=== PATIENT | female | born 1970 | race Caucasian/White ===

== ENCOUNTER 2016-09-26 06:59 | Emergency (ER) | payer BC ==
[~2016-09-26] VITALS: Ht 157.5 cm; Wt 69.4 kg
[~2016-09-26 06:59] MED LIST: CYCL10TA2 PO; HYDR-971 PO; IBUP200T43 PO
[2016-09-26 08:10] VITALS: BP 156/82
--- NOTE | 2016-09-26 08:20 | PHYS DOC ---
Past Medical History Past Medical History: Other Additional Past Medical Histor: L nephrectomy Past Surgical History: Tubal ligation, Other Additional Past Surgical Histo: L nephrectomy, L ACL/MCL Alcohol Use: None Drug Use: None Adult General Chief Complaint Chief Complaint: COUGH HPI HPI Patient is a 45 year old female presents to the emergency department with a history of cough and congestion for the last day. Patient states she has been taking Nyquil over the counter without relief. Patient also states she used her sons albuterol nebulizer treatment yesterday with some relief. Patient state she has a productive cough, green in color. She has been exposed to bronchitis. She denies fever, chills, nausea or vomiting. Review of Systems Review of Systems Constitutional: Denies fever or chills [] Eyes: Denies change in visual acuity, redness, or eye pain [] HENT: nasal congestion denies sore throat [] Respiratory: cough denies shortness of breath [] Cardiovascular: No additional information not addressed in HPI [] GI: Denies abdominal pain, nausea, vomiting, bloody stools or diarrhea [] : Denies dysuria or hematuria [] Musculoskeletal: Denies back pain or joint pain [] Integument: Denies rash or skin lesions [] Neurologic: Denies headache, focal weakness or sensory changes [] Current Medications Current Medications Current Medications Medications (Trade) Dose Ordered Sig/Che Start Time Stop Time Status Last Admin Dose Admin Albuterol Sulfate (Ventolin Neb Soln) 2.5 mg 1X ONCE 09/26/16 08:30 09/26/16 08:31 DC 09/26/16 09:01 2.5 MG Prednisone (Prednisone) 40 mg 1X ONCE 09/26/16 08:30 09/26/16 08:31 DC 09/26/16 08:28 40 MG Allergies Allergies Allergies Coded Allergies Type Severity Reaction Last Updated Verified Penicillins Allergy Severe hives 08/25/14 Yes levofloxacin Allergy Severe anaphylaxis 08/25/14 Yes Physical Exam Physical Exam Constitutional: Well developed, well nourished, no acute distress, non-toxic appearance. [] HENT: Normocephalic, atraumatic, bilateral external ears normal, oropharynx moist, no oral exudates, nose normal. Bilateral TM normal, throat without erythema, no exudate noted. Patient was noted to have frontal and maxillary sinus tenderness Eyes: PERRLA, EOMI, conjunctiva normal, no discharge. [] Neck: Normal range of motion, no tenderness, supple, no stridor. [] Cardiovascular:Heart rate regular rhythm, no murmur [] Lungs & Thorax: Bilateral breath sounds clear to auscultation [] Skin: Warm, dry, no erythema, no rash. [] Back: No tenderness Extremities: No tenderness, no cyanosis, no clubbing, ROM intact, no edema. [] Neurologic: Alert and oriented X 3, normal motor function, normal sensory function, no focal deficits noted. [] Psychologic: Affect normal, judgement normal, mood normal. [] Current Patient Data Vital Signs Vital Signs Date Time Temp Pulse Resp B/P Pulse Ox O2 Delivery O2 Flow Rate FiO2 09/26/16 09:02 98 Room Air 09/26/16 08:10 98.3 86 19 98.3 EKG EKG [] Radiology/Procedures Radiology/Procedures [] Course & Med Decision Making Course & Med Decision Making Pertinent Labs and Imaging studies reviewed. (See chart for details) Patient was provided with respiratory treatment here in the emergency department. She states that she is breathing much better. She was also provided with prednisone. She will be discharged home with albuterol nebulizer treatment , prednisone and zithromax. Recommended plenty of fluids such as water, propel or gatorade. Patient was provided with signs and symptoms to return to the emergency department. Patient agrees with discharge instructions, treatment regimen and followup recommendations. Recommended patient to followup with primary care provider in 5-7 days. [] Dragon Disclaimer Dragon Disclaimer This electronic medical record was generated, in whole or in part, using a voice recognition dictation system. Departure Departure Impression: Primary Impression: Bronchitis Disposition: 01 HOME, SELF-CARE Condition: STABLE Referrals: NO PCP (PCP) Patient Instructions: Bronchitis, [id number] Additional Instructions: Activity as tolerated Mucinex DM as prescribed by manufacture Medication as prescribed Drink plenty of fluids such as water, gatorade or propel Followup with your primary care provider in 5-7 days Return to emergency department as needed for signs and symptoms that become worse. Scripts Albuterol Sulfate (Albuterol Sulfate Neb Soln)0.63 Mg/3 Ml Vial.neb0.63 Mg NEB PRN Q4HRS PRN SHORTNESS OF BREATH #1 EACH Ref 0 Prov:JOLENE FRANKLIN NP 09/26/16 Azithromycin (Zithromax)250 Mg [id number] Mg PO DAILY ANTI-BIOTIC #6 TAB Ref 0 Take 2 tablets today then 1 tablet daily until completed Prov:JOLENE FRANKLIN NP 09/26/16 JOLENE FRANKLIN NP Sep 26, 2016 08:20
[2016-09-26] MEDS ORDERED: PREDNISONE 20 MG TABLET PO ONE (08:30)
[2016-09-26] MEDS ORDERED: ALBUTEROL SULFATE 2.5 MG/3 ML NEBU. NEB ONE (08:30)
[2016-09-26] MEDS ORDERED: ALBU0.63 NEB (08:37)
[2016-09-26] MEDS ORDERED: AZIT250T PO (08:37)
[2016-09-26] MEDS ORDERED: PRED20TA PO (09:27)
== END 2016-09-26 09:43 | disposition home or self-care (01) ==
LOC: ER 06:59
DX: J40 Bronchitis, not specified as acute or chronic (principal); Z88.0 Allergy status to penicillin; Z88.1 Allergy status to other antibiotic agents
CPT/HCPCS: 94250; 94640; 99283; J7512

== ENCOUNTER 2016-12-10 07:54 | Emergency (ER) | payer BC ==
[~2016-12-10] VITALS: Ht 160 cm; Wt 72.6 kg
[~2016-12-10 07:54] MED LIST changes: +ALBU0.63 NEB; +AZIT250T PO; +PRED20TA PO
[2016-12-10 08:08] VITALS: BP 149/88
--- NOTE | 2016-12-10 08:16 | RAD ---
Chest, 2 views, 12/10/2016: History: Cough and cold Comparison is made to a study from 04/16/2016. The heart size and pulmonary vascularity are normal. No pulmonary infiltrates are seen. There is no evidence of pleural fluid. IMPRESSION: No acute cardiopulmonary abnormality is detected.
--- NOTE | 2016-12-10 08:20 | PHYS DOC ---
Past Medical History Past Medical History: No Pertinent History Additional Past Medical Histor: L nephrectomy Past Surgical History: Tubal ligation, Other Additional Past Surgical Histo: L nephrectomy, L ACL/MCL Alcohol Use: None Drug Use: None Adult General Chief Complaint Chief Complaint: COUGH HPI HPI Patient is a 46 year old female with history of bronchitis who presents today with a productive cough that began 3 days ago. Patient denies any fever. She states she has tried using her nebulizer with no relief. 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 Review of Systems Review of Systems Constitutional: Denies fever or chills [] Eyes: Denies change in visual acuity, redness, or eye pain [] HENT: Denies nasal congestion or sore throat [] Respiratory: cough Cardiovascular: No additional information not addressed in HPI [] GI: Denies abdominal pain, nausea, vomiting, bloody stools or diarrhea [] : Denies dysuria or hematuria [] Musculoskeletal: Denies back pain or joint pain [] Integument: Denies rash or skin lesions [] Neurologic: Denies headache, focal weakness or sensory changes [] Endocrine: Denies polyuria or polydipsia [] Current Medications Current Medications Current Medications Medications (Trade) Dose Ordered Sig/Che Start Time Stop Time Status Last Admin Dose Admin Albuterol/ Ipratropium (Duoneb) 3 ml 1X ONCE 12/10/16 08:30 12/10/16 08:31 DC 12/10/16 08:41 3 ML Prednisone (Prednisone) 60 mg 1X ONCE 12/10/16 08:30 12/10/16 08:31 DC 12/10/16 08:25 60 MG Allergies Allergies Allergies Coded Allergies Type Severity Reaction Last Updated Verified Penicillins Allergy Severe hives 08/25/14 Yes levofloxacin Allergy Severe anaphylaxis 08/25/14 Yes strawberry Allergy Intermediate hives 12/10/16 Yes Uncoded Allergies Type Severity Reaction Last Updated Verified catfish Allergy Intermediate rash 12/10/16 Physical Exam Physical Exam Constitutional: Well developed, well nourished, no acute distress, non-toxic appearance. [] HENT: Normocephalic, atraumatic, bilateral external ears normal, oropharynx moist, no oral exudates, nose normal. [] Eyes: PERRLA, EOMI, conjunctiva normal, no discharge. [] Neck: Normal range of motion, no tenderness, supple, no stridor. [] Cardiovascular:Heart rate regular rhythm, no murmur [] Lungs & Thorax: Slight wheezing to posterior lung bases. Abdomen: Bowel sounds normal, soft, no tenderness, no masses, no pulsatile masses. [] Skin: Warm, dry, no erythema, no rash. [] Back: No tenderness, no CVA tenderness. [] Extremities: No tenderness, no cyanosis, no clubbing, ROM intact, no edema. [] Neurologic: Alert and oriented X 3, normal motor function, normal sensory function, no focal deficits noted. [] Psychologic: Affect normal, judgement normal, mood normal. [] Current Patient Data Vital Signs Vital Signs Date Time Temp Pulse Resp B/P Pulse Ox O2 Delivery O2 Flow Rate FiO2 12/10/16 08:42 99 Room Air 12/10/16 08:08 98.5 87 20 98.5 EKG EKG [] Radiology/Procedures Radiology/Procedures [] Course & Med Decision Making Course & Med Decision Making Pertinent Labs and Imaging studies reviewed. (See chart for details) Patient is in the ED with symptoms consistent with bronchitis. She is given a DuoNeb treatment and prednisone in the ED. She was discharged with albuterol inhaler prednisone and Tessalon Perles. She was also given a prescription for Z- Herberth. She was encouraged follow-up with her own PCP in the next 7 days. She was provided return precautions and discharged in stable condition. Dragon Disclaimer Dragon Disclaimer This electronic medical record was generated, in whole or in part, using a voice recognition dictation system. Departure Departure Impression: Primary Impression: Acute bronchitis Disposition: 01 HOME, SELF-CARE Condition: STABLE Referrals: NO PCP (PCP) Follow-up with your doctor in one week Patient Instructions: Acute Bronchitis Additional Instructions: You were seen for acute bronchitis. Please take the prescribed medicines as ordered complete your antibiotics. Follow-up with your own doctor in the next 7 days. Scripts Azithromycin (Zithromax)250 Mg Tablet1 Pkg PO UD #1 PKG Prov:MUTUNGA,MARLYN [employer] 12/10/16 Benzonatate (Tessalon Perle)100 Mg Capsule1 Cap PO TID #30 CAP Prov:MUTUNGA,MARLYN [employer]INE[employer] 12/10/16 Albuterol Sulfate (Proair Respiclick)90 Mcg Aer.pow.ba1 Puff IH PRN Q6HRS PRN SHORTNESS OF BREATH #1 INHALER Ref 1 Prov:MARLYN HI APRN 12/10/16 Prednisone 50 Mg Tablet1 Tab PO DAILY #4 TAB Prov:MARLYN HI APRN 12/10/16 Problem Qualifiers Primary Impression: Acute bronchitis Bronchitis organism: unspecified organism Qualified Code: J20.9 - Acute bronchitis, unspecified MARLYN HI APRN Dec 10, 2016 08:20
[2016-12-10] MEDS ORDERED: predniSONE 20 MG TABLET PO ONE (08:30)
[2016-12-10] MEDS ORDERED: IPRATRPIUM/ALBUTEROL 0.5/2.5MG 3 ML NEBU. NEB ONE (08:30)
[2016-12-10] MEDS ORDERED: PRED50TA PO (09:14)
[2016-12-10] MEDS ORDERED: PROAIR RESPICL90 MCG IH (09:14)
[2016-12-10] MEDS ORDERED: AZIT250T PO (09:14)
[2016-12-10] MEDS ORDERED: BENZ100C PO (09:14)
== END 2016-12-10 09:34 | disposition home or self-care (01) ==
LOC: ER 07:54
DX: J20.9 Acute bronchitis, unspecified (principal); Z88.0 Allergy status to penicillin; Z88.1 Allergy status to other antibiotic agents; Z91.013 Allergy to seafood; Z91.018 Allergy to other foods
CPT/HCPCS: 71020; 94640; 99284; J7512; J7620

== ENCOUNTER 2017-03-29 16:43 | Emergency (ER) | payer SELFPAY ==
[~2017-03-29] VITALS: Ht 157.5 cm; Wt 70.8 kg
[~2017-03-29 16:43] MED LIST changes: +BENZ100C PO; +PRED50TA PO; +PROAIR RESPICL90 MCG IH
[2017-03-29 16:48] VITALS: BP 132/85
--- NOTE | 2017-03-29 17:24 | PHYS DOC ---
Past Medical History Past Medical History: Kidney Stone Past Surgical History: Tubal ligation, Other Additional Past Surgical Histo: L nephrectomy, L ACL/MCL Alcohol Use: None Drug Use: None Adult General Chief Complaint Chief Complaint: LACERATION/AVULSION HPI HPI Patient is a 46 year old female presents emergency partner stating that she was cutting cabbage with a serrated knife when she cut her left thumb. She is unsure when her last tetanus immunization occurred. Bleeding is currently controlled. Patient is right-hand dominant. Review of Systems Review of Systems Constitutional: Denies fever or chills [] Eyes: Denies change in visual acuity, redness, or eye pain [] HENT: Denies nasal congestion or sore throat [] Respiratory: Denies cough or shortness of breath [] Cardiovascular: No additional information not addressed in HPI [] GI: Denies abdominal pain, nausea, vomiting, bloody stools or diarrhea [] : Denies dysuria or hematuria [] Musculoskeletal: Denies back pain or joint pain [] Integument: Denies rash or skin lesions. Laceration left thumb Neurologic: Denies headache, focal weakness or sensory changes [] Endocrine: Denies polyuria or polydipsia [] Current Medications Current Medications Current Medications Medications (Trade) Dose Ordered Sig/Che Start Time Stop Time Status Last Admin Dose Admin Tetanus/ Diphtheria Toxoids (Tenivac Syringe) 0.5 ml ONCE ONCE 03/29/17 17:30 03/29/17 17:31 Allergies Allergies Allergies Coded Allergies Type Severity Reaction Last Updated Verified Penicillins Allergy Severe hives 08/25/14 Yes levofloxacin Allergy Severe anaphylaxis 08/25/14 Yes strawberry Allergy Intermediate hives 12/10/16 Yes Uncoded Allergies Type Severity Reaction Last Updated Verified catfish Allergy Intermediate rash 12/10/16 Physical Exam Physical Exam Constitutional: Well developed, well nourished, no acute distress, non-toxic appearance. [] HENT: Normocephalic, atraumatic, bilateral external ears normal, oropharynx moist, no oral exudates, nose normal. [] Eyes: PERRLA, EOMI, conjunctiva normal, no discharge. [] Neck: Normal range of motion, no tenderness, supple, no stridor. [] Cardiovascular:Heart rate regular rhythm Lungs & Thorax: No respiratory distress Skin: Warm, dry, no erythema, no rash. Approximately 1 cm laceration noted to the medial side of the left thumb. Bleeding is currently controlled. Back: No tenderness Extremities: No tenderness, no cyanosis, no clubbing, ROM intact, no edema. [] Neurologic: Alert and oriented X 3, normal motor function, normal sensory function, no focal deficits noted. [] Psychologic: Affect normal, judgement normal, mood normal. [] Current Patient Data Vital Signs Vital Signs Date Time Temp Pulse Resp B/P (MAP) Pulse Ox O2 Delivery O2 Flow Rate FiO2 03/29/17 16:48 98.6 82 16 98 Room Air 98.6 EKG EKG [] Radiology/Procedures Radiology/Procedures [] Course & Med Decision Making Course & Med Decision Making Pertinent Labs and Imaging studies reviewed. (See chart for details) Finger was soaked in soapy water for approximately 20 minutes. Site was glued closed with Dermabond. Patient was provided with discharge instructions, treatment regimens and follow-up recommendations. Signs symptoms to return back to emergency department been provided. Patient was updated with her tetanus immunization. All questions were answered at patient's bedside. She was provided with signs symptoms of infection. [] Dragon Disclaimer Dragon Disclaimer This electronic medical record was generated, in whole or in part, using a voice recognition dictation system. Departure Departure Impression: Primary Impression: Laceration Disposition: 01 HOME, SELF-CARE Condition: STABLE Referrals: NO PCP (PCP) Patient Instructions: Laceration Care, Adult, [id number], Stitches, Fracisco or Skin Adhesive Strips, [id number] Additional Instructions: Activity as tolerated. Keep the area clean and dry. Do not peel the glue off as this will open up the laceration. Ice packs on 20 minutes off 20 minutes several times a day. Tylenol or ibuprofen for pain and discomfort. Watch for signs and symptoms of infection: Redness, warmth, tenderness or any yellow/greenish transient become from the site physician occur follow-up to primary care physician immediately. Return to emergency prior signs symptoms of become worse. JOLENE FRANKLIN APRN Mar 29, 2017 17:24
[2017-03-29] MEDS ORDERED: TETANUS AND DIPHTHERIA TOX/PF 0.5 ML DISP.SYRIN. VAX IM ONE (17:30)
[2017-03-29] MEDS ORDERED: DIPHTH,PERTUSS(ACELL),TET TOX 0.5 ML DISP.SYRIN. VAX IM ONE (18:00)
== END 2017-03-29 17:37 | disposition home or self-care (01) ==
LOC: ER 16:43
DX: S61.012A Laceration without foreign body of left thumb without damage to nail, initial encounter (principal); Z88.0 Allergy status to penicillin; Z88.1 Allergy status to other antibiotic agents; Z91.013 Allergy to seafood; Z91.018 Allergy to other foods; Z90.5 Acquired absence of kidney; W26.0XXA Contact with knife, initial encounter; Y93.89 Activity, other specified; Y92.89 Other specified places as the place of occurrence of the external cause; Y99.8 Other external cause status
CPT/HCPCS: 12001; 90471; 90715; 99283-25

== ENCOUNTER 2018-04-13 08:10 | Emergency (ER) | payer SELFPAY ==
[~2018-04-13] VITALS: Ht 157.5 cm; Wt 68.0 kg
[~2018-04-13 08:10] MED LIST changes: -IBUP200T43 PO; +IBUP200T44 PO
--- NOTE | 2018-04-13 08:25 | PHYS DOC ---
Past Medical History Past Medical History: Kidney Stone Past Surgical History: Tubal ligation, Other Additional Past Surgical Histo: L nephrectomy, L ACL/MCL Alcohol Use: None Drug Use: None Adult General Chief Complaint Chief Complaint: OTHER COMPLAINTS HPI HPI Patient is a 47 year old female with history of kidney stones who presents today complaining of a knot on the left side of her neck that she noted 3 months ago. Patient states the knot has been growing bigger and it is now painful to touch. Denies any fever, coughing, sore throat, denies any difficulty swallowing. Review of Systems Review of Systems Constitutional: Denies fever or chills [] Eyes: Denies change in visual acuity, redness, or eye pain [] HENT: Reports knot on the left side of the neck. Denies nasal congestion or sore throat [] Respiratory: Denies cough or shortness of breath [] Cardiovascular: No additional information not addressed in HPI [] GI: Denies abdominal pain, nausea, vomiting, bloody stools or diarrhea [] : Denies dysuria or hematuria [] Musculoskeletal: Denies back pain or joint pain [] Integument: Denies rash or skin lesions [] Neurologic: Denies headache, focal weakness or sensory changes [] All other systems were reviewed and found to be within normal limits, except as documented in this note. Allergies Allergies Allergies Coded Allergies Type Severity Reaction Last Updated Verified Penicillins Allergy Severe hives 08/25/14 Yes levofloxacin Allergy Severe anaphylaxis 08/25/14 Yes strawberry Allergy Intermediate hives 12/10/16 Yes Uncoded Allergies Type Severity Reaction Last Updated Verified catfish Allergy Intermediate rash 12/10/16 Physical Exam Physical Exam Constitutional: Well developed, well nourished, no acute distress, non-toxic appearance. [] HENT: Normocephalic, atraumatic, bilateral external ears normal, oropharynx moist, no oral exudates, nose normal. Air way is open Eyes: PERRLA, EOMI, conjunctiva normal, no discharge. [] Neck: Normal range of motion, no tenderness, supple, no stridor. Left anterior cervical spine with an area of +2 induration suspicious of lymphadenopathy, there is no erythema nor warmth to the area. The area is tender to the touch. +1 left mandibular lymphadenopathy. Cardiovascular:Heart rate regular rhythm, no murmur [] Lungs & Thorax: Bilateral breath sounds clear to auscultation [] Abdomen: Bowel sounds normal, soft, no tenderness, no masses, no pulsatile masses. [] Skin: Warm, dry, no erythema, no rash. [] Back: No tenderness, no CVA tenderness. [] Extremities: No tenderness, no cyanosis, no clubbing, ROM intact, no edema. [] Neurologic: Alert and oriented X 3, normal motor function, normal sensory function, no focal deficits noted. [] Psychologic: Affect normal, judgement normal, mood normal. [] Current Patient Data Vital Signs Vital Signs Date Time Temp Pulse Resp B/P (MAP) Pulse Ox O2 Delivery O2 Flow Rate FiO2 04/13/18 08:17 98.6 76 14 148/65 (92) 98 Room Air 98.6 EKG EKG [] Radiology/Procedures Radiology/Procedures []PROCEDURE: NECK SOFT TISSUE Examination: Ultrasound left neck HISTORY: History of palpable nodules left and right COMPARISON: None available FINDINGS: There is a 1.1 cm hypoechoic nodule identified in the soft tissue of the left neck, 1.2 cm hypoechoic nodule identified in the left submandibular region and a 1.4 cm hypoechoic nodule identified in the right submandibular region suspicious for abnormal lymph nodes. There is some blood flow identified within these nodules. IMPRESSION: Hypoechoic nodules probably abnormal lymph nodes identified in the left upper neck, right and left submandibular region. Electronically signed by: Chetan Hurd MD (04/13/2018 9:20 AM) [id number] DICTATED and SIGNED BY: CHETAN HURD MD DATE: 04/13/18 0918 Course & Med Decision Making Course & Med Decision Making Pertinent Labs and Imaging studies reviewed. (See chart for details) This is a 47-year-old male patient presented to the ED today complaining of a knot on the left side of her neck for 3 months. Neck soft tissue ultrasound - Hypoechoic nodules probably abnormal lymph nodes identified in the left upper neck, right and left submandibular region. Patient was provided ENT for follow- up as soon as possible. She was provided return precautions and discharged in stable condition. Dragon Disclaimer Dragon Disclaimer This electronic medical record was generated, in whole or in part, using a voice recognition dictation system. Departure Departure Impression: Primary Impression: Enlarged lymph node in neck Disposition: 01 HOME, SELF-CARE Condition: STABLE Referrals: NO PCP (PCP) STEVE ENRIQUEZ MD follow up as soon as you can Additional Instructions: You were evaluated in the emergency room for enlarged lymph nodes which are abnormal. We highly recommend you contact the provided ENT doctor and follow up as soon as possible. Scripts Hydrocodone/Apap 5-325 (NORCO 5-325 TABLET) 1 Each Tablet 1 TAB PO Q6HRS PRN for PAIN, #12 TAB Prov: MARLYN HI APRN 04/13/18 MARLYN HI APRN Apr 13, 2018 08:25
[2018-04-13 09:04] VITALS: BP 128/73
--- NOTE | 2018-04-13 09:23 | RAD ---
Examination: Ultrasound left neck HISTORY: History of palpable nodules left and right COMPARISON: None available FINDINGS: There is a 1.1 cm hypoechoic nodule identified in the soft tissue of the left neck, 1.2 cm hypoechoic nodule identified in the left submandibular region and a 1.4 cm hypoechoic nodule identified in the right submandibular region suspicious for abnormal lymph nodes. There is some blood flow identified within these nodules. IMPRESSION: Hypoechoic nodules probably abnormal lymph nodes identified in the left upper neck, right and left submandibular region. Electronically signed by: Chetan Hurd MD (04/13/2018 9:20 AM) [id number]
[2018-04-13] MEDS ORDERED: HYDR-971 PO (09:30)
== END 2018-04-13 09:40 | disposition home or self-care (01) ==
LOC: ER 08:10
DX: R59.0 Localized enlarged lymph nodes (principal); Z87.442 Personal history of urinary calculi; Z98.51 Tubal ligation status; Z88.0 Allergy status to penicillin; Z88.1 Allergy status to other antibiotic agents; Z91.013 Allergy to seafood; Z91.018 Allergy to other foods
CPT/HCPCS: 76536; 99284

== ENCOUNTER → 2018-04-30 | Outpatient (CLI) | payer OTHER ==
[2018-04-13 09:04] VITALS: BP 128/73
[~2018-04-30] MED LIST changes: +CONTRAST GIVEN. MC PRN
[2018-04-30] MEDS: IOHEXOL 300 MG/ML 100ML VIAL. IV ONE (16:15)
[2018-04-30 16:43] LABS: CREATININE 0.9 mg/dL (0.6-1.0); GFR 67.7
--- NOTE | 2018-04-30 17:23 | RAD ---
CT of the neck with contrast, 04/30/2018: HISTORY: Neck nodules Multidetector CT imaging was performed following an IV bolus injection of iodinated contrast material. Small BBs were placed on the skin surface overlying the patient's palpable left and right neck nodules There is a 1.6 cm superficial nodule in the subcutaneous soft tissues of the left neck anterolaterally at approximately the hyoid level. Its internal CT number is 33 Hounsfield units suggesting complicated fluid. It demonstrates a thin, slightly irregular wall. A second area marked higher in the left neck laterally corresponds to the left parotid region. No discrete mass is seen at this level. The single area of concern marked on the right corresponds to a 1.3 cm low-density subcutaneous nodule near the angle of the mandible. It demonstrates CT characteristics similar to the left-sided nodule. The laryngeal region is unremarkable. The parotid and submandibular glands show no intrinsic abnormality. No airway narrowing is seen. The thyroid gland is mildly heterogeneous without evidence of a discrete mass. Several small bilateral cervical lymph nodes are identified. The largest of these lies on the left just superior and lateral to the carotid bifurcation. It measures 9 mm in width. It is considered to be of borderline size. IMPRESSION: Single bilateral superficial low density subcutaneous nodules are present as described above, corresponding to areas of palpable concern. These are inseparable from the overlying skin. Diagnostic considerations include skin related lesions such as epidermal inclusion cysts or abscesses. Necrotic lymph nodes are less likely. PQRS Compliance Statement: One or more of the following individualized dose reduction techniques were utilized for this examination: 1. Automated exposure control 2. Adjustment of the mA and/or kV according to patient size 3. Use of iterative reconstruction technique Electronically signed by: Khai Calle MD (04/30/2018 5:19 PM) [facility]
== END | disposition home or self-care (01) ==
LOC: CT 15:45
DX: R22.1 Localized swelling, mass and lump, neck (principal); Z87.442 Personal history of urinary calculi; Z87.891 Personal history of nicotine dependence; Z88.0 Allergy status to penicillin; Z91.018 Allergy to other foods; Z91.013 Allergy to seafood; Z90.5 Acquired absence of kidney
CPT/HCPCS: 36415; 70491; 82565; 84520; Q9967